=== PATIENT | female | born 1950 | race Caucasian/White ===

== ENCOUNTER → 2016-08-25 | Outpatient (CLI) | payer BC, MEDICARE ==
[~2016-08-25] MED LIST: ALTACE DPS10 MG PO; ASA CHILDREN'S81 MG PO; BENADRYL-DPS25 MG PO; CELEXA DPS20 MG PO; COMPAZINE DPS5 MG PO; DULERA 100/58.8 GM IH; DUONEB DPS3 ML IH; HYDROCODONE 5MG/5 MG PO; MAALOX DPS30 ML PO; MILK OF MAGNESI10 ML PO; POLYETHYLENE GL17 GM PO; SENOKOT S1 TAB PO; SURFAK DPS240 MG PO; SYNTHROID DP0.175 MG PO; TOPAMAX DPS25 MG PO; TYLENOL DPS325 MG PO; VALTREX DPS1 GM PO
== END | disposition home or self-care (01) ==
LOC: PTH.S 08-24 07:45
DX: D64.9 Anemia, unspecified (principal)